=== PATIENT | male | born 2000 | race Caucasian/White ===

== ENCOUNTER 2019-10-14 02:37 | Emergency (ER) | payer BC, OTHER ==
[~2019-10-14] VITALS: Ht 175.2 cm; Wt 140.6 kg
[2019-10-14 03:19] LABS: BILIRUBIN,URINE NEGATIVE (NEGATIVE); CLARITY,URINE CLEAR; COLOR,URINE YELLOW; GLUCOSE, URINE (UA) NEGATIVE (NEGATIVE); KETONES,URINE NEGATIVE (NEGATIVE); LEUKOCYTE ESTERASE ,URINE NEGATIVE (NEGATIVE); NITRITE,URINE NEGATIVE (NEGATIVE); PH,URINE 5.5 (5-9); PROTEIN,URINE NEGATIVE (NEGATIVE)
[2019-10-14 03:31] LABS: AMPHETAMINE SCREEN, URINE NEGATIVE (NEGATIVE); BACTERIA,URINE NEGATIVE /HPF; BARBITURATE SCREEN URINE NEGATIVE (NEGATIVE); BENZODIAZEPINES SCREEN URINE NEGATIVE (NEGATIVE); CANNABINOID SCREEN, URINE NEGATIVE (NEGATIVE); COCAINE SCREEN URINE NEGATIVE (NEGATIVE); METHADONE STAT NEGATIVE (NEGATIVE); METHAMPHETAMINE SCREEN URINE S NEGATIVE (NEGATIVE); OPIATE SCREEN URINE NEGATIVE (NEGATIVE); OXYCODONE STAT NEGATIVE (NEGATIVE); PROPOXYPHENE STAT NEGATIVE (NEGATIVE); TRICYCLIC ANTIDEPRESSANTS SCRE NEGATIVE (NEGATIVE); WBC,URINE RARE /HPF
[2019-10-14 03:32] LABS: AMORPHOUS SEDIMENT,UR FEW AMOR URATES /LPF
[2019-10-14] MEDS ORDERED: LACTATED RINGERS 1,000 ML IV ONE (03:35)
[2019-10-14] MEDS ORDERED: ONDANSETRON 4 MG/2 ML (SDV) Z0FRAN IVP ONE (03:45)
[2019-10-14] MEDS ORDERED: PANTOPRAZOLE 40 MG (PROTONIX) VIAL IV ONE (03:45)
[2019-10-14 04:26] LABS: BASOPHILS % (AUTO) 0 % (0-10); EOSINOPHILS # (AUTO) 0.2 10^3/uL (0.0-0.3); EOSINOPHILS % (AUTO) 2 % (0-10); HEMATOCRIT 45 % (40-54); HEMOGLOBIN 15.1 G/DL (13.3-17.7); LYMPHOCYTES # (AUTO) 1.4 X 10^3 (1.0-4.0); LYMPHOCYTES % (AUTO) 15 % (12-44); MEAN CORPUSCULAR HEMOGLOBIN 28 PG (25-34); MEAN CORPUSCULAR HGB CONC 34 G/DL (32-36); MEAN CORPUSCULAR VOLUME 84 FL (80-99); MEAN PLATELET VOLUME 10.2 FL (7.4-10.4); MONOCYTES % (AUTO) 10 % (0-12); NEUTROPHILS # (AUTO) 6.8 X 10^3 (1.8-7.8); NEUTROPHILS % (AUTO) 73 % (42-75); PLATELET COUNT 288 10^3/uL (130-400); RED CELL DISTRIBUTION WIDTH 14.2 % (10.0-14.5); WHITE BLOOD COUNT 9.4 10^3/uL (4.3-11.0)
[2019-10-14 04:43] LABS: ALANINE AMINOTRANSFERASE 26 U/L (0-55); ALBUMIN 4.6 GM/DL (3.2-4.5); ALKALINE PHOSPHATASE 94 U/L (40-136); AMYLASE 49 U/L (25-125); BILIRUBIN,TOTAL 0.6 MG/DL (0.1-1.0); BUN/CREATININE RATIO 16; CALCIUM 9.6 MG/DL (8.5-10.1); CARBON DIOXIDE 25 MMOL/L (21-32); CHLORIDE 103 MMOL/L (98-107); CREATININE SERUM 0.93 MG/DL (0.60-1.30); GFR ESTIMATED > 60; GLUCOSE 120 MG/DL (70-105); LIPASE 19 U/L (8-78); POTASSIUM 3.8 MMOL/L (3.6-5.0); SODIUM 141 MMOL/L (135-145); TOTAL PROTEIN 7.9 GM/DL (6.4-8.2)
[2019-10-14] MEDS ORDERED: HYOSCYAMINE 0.125 MG (LEVSIN) TAB PO ONE (05:00)
[2019-10-14] MEDS ORDERED: KETOROLAC 30 MG/ML VIAL IVP ONE (05:15)
[2019-10-14] MEDS ORDERED: PANT40TA2 PO (05:20)
[2019-10-14] MEDS ORDERED: ONDA4TAB11 PO (05:20)
[2019-10-14] MEDS ORDERED: HYOS0.1283 SL (05:20)
--- NOTE | 2019-10-14 05:20 | ED Abdominal Pain ---
General Chief Complaint: Abdominal/GI Problems Stated Complaint: ABD PAIN,NAUSEA Source of Information: Patient History of Present Illness Date Seen by Provider: Oct 14, 2019 Time Seen by Provider: 03:10 Initial Comments PT ARRIVES VIA POV FROM HOME WITH FAMILY C/O "REALLY BAD ABDOMINAL PAIN" --POINTS TO EPIGASTRIC AREA AREA OF PAIN ONGOING FOR 3 DAYS STATES IT IS WORSE WITH EATING AND LAYING DOWN C/O NAUSEA AND VOMITING FOR 3 DAYS--HAS VOMITED X 4-5 TODAY HAD NORMAL BM TODAY--CHRONIC CONSTIPATION NO RADIATION OF PAIN NO FEVER NO URINARY SYMPTOMS NO PRIOR HISTORY OF SIMILAR NO PRIOR ABDOMINAL SURGERIES HAS NOT TAKEN ANYTHING FOR SYMPTOMS SYMPTOMS NO DIFFERENT TODAY IN ANY WAY HAS NOT SOUGHT CARE UNTIL TODAY PCP: ZACARIAS Allergies and Home Medications Allergies Coded Allergies: No Known Drug Allergies (Unverified , 10/14/19) Home Medications Hyoscyamine Sulfate 0.125 Mg Tab.subl, 0.25 MG SL Q4H Prescribed by: ASIF VALADEZ on 10/14/19 05 Ondansetron 4 Mg Tab.rapdis, 4 MG PO Q4H Prescribed by: ASIF VALADEZ on 10/14/19 0520 Pantoprazole Sodium 40 Mg Tablet.dr, 40 MG PO DAILY Prescribed by: ASIF VALADEZ on 10/14/19 05 Patient Home Medication List Home Medication List Reviewed: Yes Review of Systems Review of Systems Constitutional: no symptoms reported Respiratory: No Symptoms Reported Cardiovascular: No Symptoms Reported Gastrointestinal: See HPI, Abdominal Pain, Constipated, Nausea, Vomiting Genitourinary: No Symptoms Reported Musculoskeletal: no symptoms reported Skin: no symptoms reported Psychiatric/Neurological: No Symptoms Reported Endocrine: No Symptoms Reported Hematologic/Lymphatic: No Symptoms Reported Past Smihyoc-Lanltr-Lamnjv Hx Past Med/Social Hx: Reviewed and Corrections made Patient Social History Alcohol Use: Denies Use Recreational Drug Use: No Smoking Status: Never a Smoker Recent Foreign Travel: No Contact w/Someone Who Travel: No Past Medical History Surgeries: No Respiratory: No Cardiac: No Neurological: No Genitourinary: No Gastrointestinal: Yes Chronic Constipation Musculoskeletal: No Endocrine: Yes (MORBID OBESITY) HEENT: No Cancer: No Psychosocial: No Integumentary: No Blood Disorders: No Physical Exam Vital Signs Vital Signs - First Documented 10/14/19 10/14/19 03:02 05:58 Temp 36.6 Pulse 63 Resp 18 B/P (MAP) 140/97 Pulse Ox 98 Capillary Refill : Height/Weight/BMI Height: '" Weight: lbs. oz. kg; BMI Method: General Appearance: obese (MORBIDLY), other (EXTREMELY FILTHY, INCLUDING HANDS AND FACE--BLACK WITH DIRT; EXTREMELY MALODOROUS. MORBIDLY OBESE. VERY NONCHALANT AND DOES NOT APPEAR TO BE IN ANY DISCOMFORT OR DISTRESS, AND WALKS UPRIGHT AND MOVES WITHOUT DIFFICULTY. ) HEENT: PERRL/EOMI Respiratory: normal breath sounds, no respiratory distress, no accessory muscle use Cardiovascular: regular rate, rhythm, no murmur Gastrointestinal: normal bowel sounds, soft; No guarding, No rebound; tenderness (MILD DIFFUSE UPPER ABDOMINAL TENDERNSS. ); No mass Extremities: normal inspection Neurologic/Psychiatric: [facility] II-XII nml as tested, no motor/sensory deficits, alert, normal mood/affect, oriented x 3 Skin: warm/dry Progress/Results/Core Measures Results/Orders Lab Results Laboratory Tests Test 10/14/19 03:08 10/14/19 04:20 Range/Units Urine Color YELLOW Urine Clarity CLEAR Urine pH 5.5 5-9 Urine Specific [place] >=1.030 1.016-1.022 Urine Protein NEGATIVE NEGATIVE Urine Glucose (UA) NEGATIVE NEGATIVE Urine Ketones NEGATIVE NEGATIVE Urine Nitrite NEGATIVE NEGATIVE Urine Bilirubin NEGATIVE NEGATIVE Urine Urobilinogen 0.2 < = 1.0 MG/DL Urine Leukocyte Esterase NEGATIVE NEGATIVE Urine RBC (Auto) NEGATIVE NEGATIVE Urine RBC NONE /HPF Urine WBC RARE /HPF Urine Squamous Epithelial Cells NONE /HPF Urine Crystals PRESENT H /LPF Urine Amorphous Sediment FEW RUSS URATES H /LPF Urine Bacteria NEGATIVE /HPF Urine Casts NONE /LPF Urine Mucus SMALL H /LPF Urine Culture Indicated NO Urine Opiates Screen NEGATIVE NEGATIVE Urine Oxycodone Screen NEGATIVE NEGATIVE Urine Methadone Screen NEGATIVE NEGATIVE Urine Propoxyphene Screen NEGATIVE NEGATIVE Urine Barbiturates Screen NEGATIVE NEGATIVE Ur Tricyclic Antidepressants Screen NEGATIVE NEGATIVE Urine Phencyclidine Screen NEGATIVE NEGATIVE Urine Amphetamines Screen NEGATIVE NEGATIVE Urine Methamphetamines Screen NEGATIVE NEGATIVE Urine Benzodiazepines Screen NEGATIVE NEGATIVE Urine Cocaine Screen NEGATIVE NEGATIVE Urine Cannabinoids Screen NEGATIVE NEGATIVE White Blood Count 9.4 4.3-11.0 10^3/uL Red Blood Count 5.36 4.35-5.85 10^6/uL Hemoglobin 15.1 13.3-17.7 G/DL Hematocrit 45 40-54 % Mean Corpuscular Volume 84 80-99 FL Mean Corpuscular Hemoglobin 28 25-34 PG Mean Corpuscular Hemoglobin Concent 34 32-36 G/DL Red Cell Distribution Width 14.2 10.0-14.5 % Platelet Count 288 130-400 10^3/uL Mean Platelet Volume 10.2 7.4-10.4 FL Neutrophils (%) (Auto) 73 42-75 % Lymphocytes (%) (Auto) 15 12-44 % Monocytes (%) (Auto) 10 0-12 % Eosinophils (%) (Auto) 2 0-10 % Basophils (%) (Auto) 0 0-10 % Neutrophils # (Auto) 6.8 1.8-7.8 X 10^3 Lymphocytes # (Auto) 1.4 1.0-4.0 X 10^3 Monocytes # (Auto) 1.0 0.0-1.0 X 10^3 Eosinophils # (Auto) 0.2 0.0-0.3 10^3/uL Basophils # (Auto) 0.0 0.0-0.1 10^3/uL Sodium Level 141 135-145 MMOL/L Potassium Level 3.8 3.6-5.0 MMOL/L Chloride Level 103 98-107 MMOL/L Carbon Dioxide Level 25 21-32 MMOL/L Anion Gap 13 5-14 MMOL/L Blood Urea Nitrogen 15 7-18 MG/DL Creatinine 0.93 0.60-1.30 MG/DL Estimat Glomerular Filtration Rate > 60 BUN/Creatinine Ratio 16 Glucose Level 120 H 70-105 MG/DL Calcium Level 9.6 8.5-10.1 MG/DL Corrected Calcium 8.5-10.1 MG/DL Total Bilirubin 0.6 0.1-1.0 MG/DL Aspartate Amino Transf (AST/SGOT) 23 5-34 U/L Alanine Aminotransferase (ALT/SGPT) 26 0-55 U/L Alkaline Phosphatase 94 40-136 U/L Total Protein 7.9 6.4-8.2 GM/DL Albumin 4.6 H 3.2-4.5 GM/DL Amylase Level 49 25-125 U/L Lipase 19 8-78 U/L My Orders Orders - ASIF VALADEZ DO Ed Iv/Invasive Line Start (10/14/19 03:11) Amylase (10/14/19 03:11) Cbc With Automated Diff (10/14/19 03:11) Comprehensive Metabolic Panel (10/14/19 03:11) Drug Screen Stat (Urine) (10/14/19 03:11) Lipase (10/14/19 03:11) Ua Culture If Indicated (10/14/19 03:11) Ed Iv/Invasive Line Start (10/14/19 03:35) Lactated Ringers (Lr 1000 Ml Iv Solution (10/14/19 03:35) Ondansetron Injection (Zofran Injectio (10/14/19 03:45) Acute Abd Series (10/14/19 03:35) Pantoprazole Injection (Protonix Injecti (10/14/19 03:45) Ct Abd/Pelvis Wo(Kidney Stone) (10/14/19 04:17) Hyoscyamine Sl Tablet (Levsin Sl Tablet) (10/14/19 05:00) Ketorolac Injection (Toradol Injection) (10/14/19 05:15) Medications Given in ED Vital Signs/I&O 10/14/19 10/14/19 03:02 05:58 Temp 36.6 37.0 Pulse 63 71 Resp 18 20 B/P (MAP) 140/97 Pulse Ox 98 Progress Progress Note : Progress Note UNEVENTFUL ER STAY NO VOMITING DURING STAY SYMPTOMS IMPROVED AT DISMISSAL WILL ARRANGE FOR OUTPATIENT ABDOMINAL ULTRASOUND Diagnostic Imaging Comments ABDOMEN XRAYS--NO ACUTE PROCESS, PENDING RADIOLOGIST REVIEW CT ABDOMEN/PELVIS--NO ACUTE PROCESS, HEPATIC STEATOSIS, PER [facility] VIA FAX AT [phone] Reviewed: Reviewed by Me Departure Impression Primary Impression: Upper abdominal pain Additional Impression: Hepatic steatosis Disposition: HOME, SELF-CARE Condition: Stable Departure-Patient Inst. Referrals: [facility] (PCP/Family) Primary Care Physician Patient Instructions: Acute Abdomen (Belly Pain), Adult (DC), Nonalcoholic Fatty Liver Disease (DC) Add. Discharge Instructions: CLEAR LIQUIDS--WATER, BROTH, JELLO, GATORADE BRATS DIET--BANANAS, RICE, APPLESAUCE, TOAST, SALTINES FOLLOW UP WITH [facility] IN THE NEXT FEW DAYS FOR FURTHER CARE All discharge instructions reviewed with patient and/or family. Voiced understanding. Scripts Pantoprazole Sodium (Protonix) 40 Mg Tablet.dr 40 MG PO DAILY, #15 TAB Prov: ASIF VALADEZ DO 10/14/19 Hyoscyamine Sulfate (Levsin-Sl) 0.125 Mg Tab.subl 0.25 MG SL Q4H, #10 TAB Prov: ASIF VALADEZ DO 10/14/19 Ondansetron (Ondansetron Odt) 4 Mg Tab.rapdis 4 MG PO Q4H for Nausea/Vomiting, #10 TAB Prov: ASIF VALADEZ DO 10/14/19 ASIF VALADEZ DO Oct 14, 2019 05:20
--- NOTE | 2019-10-14 05:48 | Diagnostic Imaging Report ---
INDICATION: Upper abdominal pain starting after eating x3 days. TECHNIQUE: Single view chest with supine and upright radiographs of the abdomen. CORRELATION STUDY: None FINDINGS: Frontal radiograph of the chest demonstrates no acute abnormality. Supine and upright radiographs of the abdomen demonstrates the bowel gas pattern to be unremarkable and without evidence for obstruction. No free air is seen under the diaphragms. No pathologic intraabdominal calcifications. IMPRESSION: 1. Negative for acute cardiopulmonary abnormality. 2. Unremarkable appearing bowel gas pattern. Dictated by: Dictated on workstation # [id number]
--- NOTE | 2019-10-14 06:03 | Diagnostic Imaging Report ---
PROCEDURE: CT urinary tract, rule out kidney stone. TECHNIQUE: Multiple contiguous axial images were obtained through the abdomen and pelvis without the use of intravenous contrast. Auto Exposure Controls were utilized during the CT exam to meet ALARA standards for radiation dose reduction. INDICATION: Upper abdominal pain, onset after eating x3 days. CORRELATION STUDY: None. FINDINGS: LOWER THORAX: Clear. LIVER: Upper limits normal in size with mild steatosis. GALLBLADDER: Present and unremarkable. No bile duct dilatation. SPLEEN: Unremarkable. PANCREAS: Unremarkable. ADRENAL GLANDS: Unremarkable. KIDNEYS: Normal configuration. No calcification or obstruction. ABDOMINAL AORTA: Unremarkable, nonaneurysmal. GASTROINTESTINAL TRACT: No obstruction or inflammation. Normal appendix. URINARY BLADDER: Decompressed and therefore not well evaluated. REPRODUCTIVE: Prostate gland appearing unremarkable. OSSEOUS STRUCTURES: No acute abnormality. OTHER: None. IMPRESSION: 1. Negative for acute abnormality of the abdomen or pelvis. 2. Borderline hepatomegaly with hepatic steatosis. A preliminary report was provided by [facility]. Dictated by: Dictated on workstation # [id number]
--- OUTSIDE RECORDS SUMMARY | 2019-10-15 21:15 | XMS REPORT ---
Author Author Jaguar Medina Organization [facility] Address [address] [place] [address] Care Team Providers Care Career Development Associate Name Role Phone MONIKA Medina Unavailable PROBLEMS Type Condition ICD9-CM Code [id number] Code Onset Dates Condition S tatus SNOMED Code Problem Acute upper respiratory infections of unspecified site 465.9 Active 06893818 Problem Acanthosis nigricans L83 Active 342518920 Problem Routine infant or child health check V20.2 Active 168564637 ALLERGIES No Information ENCOUNTERS Encounter Location Date Diagnosis [facility] [address] [address] Sep, Flu-like symptoms R68.[address] [address] Jul, Acute bronchitis due to othe r specified organisms J20.8 and Acanthosis nigricans L83 [place] [id number] [place] [address] Jul, Ingrown nail L60.0 and Infec alona nailbed of toe L03.[address] [address] Mar, Ingrown left greater toenail 703.0 [place] [id number] [place] [address] December, GERD (gastroesophageal reflu x disease) 530.81 [place] [id number] [place] [address] Sep, [place] [address] [address] Sep, [place] [address] [id number] [address] [place] [address] December, [facility] [address] [id number] [address] [place] [address] December, [facility] [address] [id number] [address] [place] [address] December, [facility] [address] [id number] [address] [place] [address] December, [facility] [address] [id number] [address] [place] [address] December, [facility] [address] [id number] [address] [place] [address] December, [facility] [address] [id number] [address] [place] [address] Oct, IMMUNIZATIONS No Known Immunizations SOCIAL HISTORY Never Assessed REASON FOR VISIT PLAN OF CARE VITAL SIGNS Height 69 in 2014-09-26 Weight 310.56 lbs 2014-09-26 Temperature 97.5 degrees Fahrenheit 2014-09-26 Heart Rate 80 bpm 2014-09-26 Respiratory Rate 20 2014-09-26 Blood pressure systolic 120 mmHg 2014-09-26 Blood pressure diastolic 64 mmHg 2014-09-26 MEDICATIONS No Known Medications RESULTS No Results PROCEDURES Procedure Date Ordered Result Body Site STREP A ASSAY W/OPTIC Sep 26, 2014 INSTRUCTIONS MEDICATIONS ADMINISTERED No Known Medications MEDICAL (GENERAL) HISTORY Type Description Date Medical History Acid reflux
--- OUTSIDE RECORDS SUMMARY | 2019-10-15 21:15 | XMS REPORT ---
Author Author Jaguar PELAYO Organization [employer] Address Unknown Phone Unavailable Care Team Providers Care Driller And Reamer Name Role Phone RAF PELAYO CP Unavailable Allergies, Adverse Reactions, Alerts Substance Reaction Event Type N.K.D.A. Info Not Available Non Drug Allergy Problems Problem Type Condition Code Onset Dates Condition Statu s Problem Acute upper respiratory infections of unspecified site 465.9 Active Assessment Ingrown nail L60.0 Active Problem Routine or child health check V20.2 Active Assessment Infected nailbed of toe L03.039 Acti ve Medications Medication Code System Code Instructions Start Date End Date Status Dosage Sparkman [facility] [address]-78 5-325 MG Orally every 6 hrs Jul 24, 2015 1 tablet as needed Omeprazole [facility] [address]-08 20 MG Orally 2 times a day December 08, 2014 1 capsule Procedures Procedure Coding System Code Date REMOVE NAIL PLATE, ADD-ON CPT-4 98299 Jul REMOVAL OF NAIL PLATE CPT-4 63265 Jul 24 15 Vital Signs Date/Time: Jul 24, 2015 Temperature 96.7 F BMIPercentile 99.82 % Weight 315.8 lbs Height 70 in BMI 45.31 Index Blood Pressure Diastolic 80 mmHg Blood Pressure Systolic 140 mmHg Cardiac Monitoring Heart Rate 78 bpm Wt Percentile 99.99 % Ht Percentile 75.86 % Results Name Result Date Reference Range Unit Abnormali ty Flag NAIL REMOVAL EACH ADD'L NAIL REMOVAL SINGLE (COMPLETE OR PARTIAL) Summary Purpose [employer] Submission
--- OUTSIDE RECORDS SUMMARY | 2019-10-15 21:15 | XMS REPORT ---
Author Author Jaguar Salamanca Organization [facility] Address [address] [place] [address] Care Team Providers Care Balance Sheet Analyst Name Role Phone OMID Salamanca Unavailable PROBLEMS Type Condition ICD9-CM Code [id number] Code Onset Dates Condition S tatus SNOMED Code Problem Acute upper respiratory infections of unspecified site 465.9 Active 72936531 Problem Acanthosis nigricans L83 Active 687316555 Problem Routine or child health check V20.2 Active 129625456 ALLERGIES No Information ENCOUNTERS Encounter Location Date Diagnosis [address] [place] [address] Apr, Fever R50.9 ; Acute tonsilli tis due to other specified organisms J03.80 and Other specified bacterial agents as the cause of diseases classified elsewhere B96.89 [place] [id number] [place] [address] Sep, Flu-like symptoms R68.89 [place] [id number] [place] [address] Jul, Acute bronchitis due to other specified organisms J20.8 and Acanthosis nigricans L83 [place] [id number] [place] [address] Jul, Ingrown nail L60.0 and Infected nailbed of toe L03.[address] [address] Mar, Ingrown left greater toenail 703.0 [place] [id number] [place] [address] December, GERD (gastroesophageal reflux disease) 5 30.81 [place] [id number] [place] [address] Sep, [facility] [address] [id number] [place] [address] Sep, [facility] [address] [facility] [place] [address] December, [facility] [address] [id number] [place] [address] December, [facility] [address] [place] [id number] [place] [address] December, [facility] [address] [place] [address] [id number] [place] [address] December, [facility] [address] [facility] [place] [address] December, [facility] [address] [id number] [place] [address] December, [facility] [address] [facility] [place] [address] Oct, IMMUNIZATIONS No Known Immunizations SOCIAL HISTORY Never Assessed REASON FOR VISIT PLAN OF CARE VITAL SIGNS Height 69 in 2013-12-13 Weight 287 lbs 2013-12-13 Temperature 98.7 degrees Fahrenheit 2013-12-13 Heart Rate 88 bpm 2013-12-13 Respiratory Rate 20 2013-12-13 Blood pressure systolic 138 mmHg 2013-12-13 Blood pressure diastolic 79 mmHg 2013-12-13 MEDICATIONS No Known Medications RESULTS No Results PROCEDURES Procedure Date Ordered Result Body Site AUDIOMETRY-SCREEN December 13, 2013 INSTRUCTIONS MEDICATIONS ADMINISTERED No Known Medications MEDICAL (GENERAL) HISTORY Type Description Date Medical History Acid reflux
--- OUTSIDE RECORDS SUMMARY | 2019-10-15 21:15 | XMS REPORT ---
Author Author Jaguar Salamanca Organization [facility] Address [address] [place] [address] Care Team Providers Care Endoscopy Registered Nurse Name Role Phone OMID Salamanca Unavailable PROBLEMS Type Condition ICD9-CM Code XUI87-MG Code Onset Dates Condition S tatus SNOMED Code Problem Acute upper respiratory infections of unspecified site 465.9 Active 13064789 Problem Acanthosis nigricans L83 Active 779722170 Problem Routine or child health check V20.2 Active 326957654 ALLERGIES No Information ENCOUNTERS Encounter Location Date Diagnosis [address] [place] [address] Apr, Fever R50.9 ; Acute tonsilli tis due to other specified organisms J03.80 and Other specified bacterial agents as the cause of diseases classified elsewhere B96.89 [place] [id number] [place] [address] Sep, Flu-like symptoms R68.89 [place] [id number] [place] [address] Jul, Acute bronchitis due to other specified organisms J20.8 and Acanthosis nigricans L83 [place] [id number] [place] [address] Jul, Ingrown nail L60.0 and Infected nailbed of toe L03.[address] [address] Mar, Ingrown left greater toenail 703.0 [place] [id number] [place] [address] December, GERD (gastroesophageal reflux disease) 5 30.81 [place] [id number] [place] [address] Sep, [facility] [address] [id number] [place] [address] Sep, [facility] [address] [id number] [place] [address] December, [facility] [address] [place] [address] [id number] [place] [address] December, [facility] [address] [place] [id number] [place] [address] December, [facility] [address] [place] [address] [id number] [place] [address] December, [facility] [address] [place] [address] [id number] [place] [address] December, [facility] [address] [place] [address] [id number] [place] [address] December, [facility] [address] [id number] [place] [address] Oct, IMMUNIZATIONS No Known Immunizations SOCIAL HISTORY Never Assessed REASON FOR VISIT PLAN OF CARE VITAL SIGNS MEDICATIONS No Known Medications RESULTS No Results PROCEDURES Procedure Date Ordered Result Body Site COMPLETE CBC W/AUTO DIFF WBC December 14, 2013 ASSAY THYROID STIM HORMONE December 14, 2013 GLYCATED HEMOGLOBIN TEST December 14, 2013 LIPID PANEL December 14, 2013 COMPREHEN METABOLIC PANEL December 14, 2013 VENIPUNCT, ROUTINE* December 14, 2013 INSTRUCTIONS MEDICATIONS ADMINISTERED No Known Medications MEDICAL (GENERAL) HISTORY Type Description Date Medical History Acid reflux
== END 2019-10-14 06:02 | disposition home or self-care (01) ==
LOC: EDUNIT# 02:37 → ER 02:41
DX: K76.0 Fatty (change of) liver, not elsewhere classified (principal); E66.01 Morbid (severe) obesity due to excess calories; Z68.42 Body mass index [BMI] 45.0-49.9, adult
CPT/HCPCS: 36415; 74022; 74176; 80053; 80306; 81000; 82150; 83690; 85025